=== PATIENT | male | born 1970 | race Caucasian/White ===

== ENCOUNTER 2019-08-09 16:35 | Inpatient (IN) | payer SELFPAY ==
[2019-08-09] MEDS ORDERED: Ondansetron PF 4 MG/2 ML Vial ONE (17:52)
[2019-08-09] MEDS ORDERED: Morphine 4 MG/ML VIAL ONE ×2 (17:52→18:38)
--- NOTE | 2019-08-09 18:12 | RAD ---
PORTABLE CHEST: 08/09/19 HISTORY: Epigastric pain. COMPARISON: 12/24/13 study. FINDINGS: Heart size and mediastinum are within normal limits. The lungs are clear of infiltrates. No significa nt bony findings. IMPRESSION: No active intrathoracic disease. POS: [facility]
[2019-08-09] MEDS ORDERED: Mag-Al 1200 mg/1200 mg/30 ML UDCUP ONE ×2 (18:15→18:38)
[2019-08-09] MEDS ORDERED: Lidocaine Viscous Sol 2% 15 ml UD Cup ONE ×2 (18:15→18:38)
[2019-08-09 18:18] LABS: Hemoglobin 14.2 g/dL (14.0-18.0); Mean Corpuscular HGB CONC 34.3 g/dL (32.0-36.0); Mean Corpuscular Volume 93.3 fL (78.0-98.0); Mean Platelet Volume 6.7 fL (7.4-10.4); Platelet Count 273 thou/uL (130-400); RBC Distribution Width 11.4 % (11.5-14.5); Red Blood Cell (RBC) Count 4.45 mill/uL (4.70-6.10)
[2019-08-09 18:33] LABS: ALT (SGPT) 461 U/L (8-55); AST (SGOT) 56 U/L (5-34); Albumin 4.2 g/dL (3.5-5.0); Alkaline Phosphatase 138 U/L (40-110); Anion Gap 24 mmol/L (10-20); BUN (Urea Nitrogen) 25 mg/dL (8.9-20.6); Bilirubin, Total 0.6 mg/dL (0.2-1.2); Calc. Creatinine Clearance 0 mL/min (70-130); Calcium 8.6 mg/dL (7.8-10.44); Carbon Dioxide 13 mmol/L (22-29); Chloride 100 mmol/L (98-107); Estimated GFR-MDRD 58; Globulin 2.1 g/dL (2.4-3.5); Glucose 222 mg/dL (70-105); Lipase 10 U/L (8-78); Protein, Total 6.3 g/dL (6.0-8.3); Sodium 132 mmol/L (136-145)
[2019-08-09 18:36] LABS: Band 8 % (5-11); Lymphocytes 11 % (21-51); MDiff Complete? YES; Monocytes 5 % (0-10); Neutrophil 74 % (42-75); Platelet Morphology Comment Appears Adequate; RBC Morphology Normal; Reactive Lymphocytes 2 % (0-10)
[2019-08-09 19:28] LABS: Acetaminophen Less than 6.0 mcg/mL (10.0-30.0); Alcohol Less than 10 mg/dL (Less than 10); Salicylate Less than 8.0 mg/dL (15.0-30.0)
[2019-08-09 19:31] LABS: Bilirubin Negative (Negative); Blood, Urine Negative (Negative); Clarity Clear (Clear); Glucose, Urine (Dipstick) Greater than 1000 mg/dL (Negative); Leukocyte Negative Leu/uL (Negative); Nitrite Negative (Negative); Protein, Urine (Dipstick) Negative (Neg-Trace); Urobilinogen Normal mg/dL (Less than 2)
--- NOTE | 2019-08-09 21:25 | CT ---
CT Abdomen Pelvis W Con HISTORY: Abdominal pain and vomiting. COMPARISON: None. FINDINGS: The lung bases are clear of any infiltrative process. Lungs appear somewhat hyperexpanded. There appears be some distal esophageal wall thickening which would suggest reflux. The liver spleen pancreas and gallbladder regions appear unremarkable. Right and left adrenal glands are normal. Right and left kidneys are normal in size. There is a fat d ensity exophytic mass involving the left kidney, it measures approximately 5.7 cm and is most suggestive of a myelolipoma. No obstruction of either kidney. No significant periaortic or mesenteric adenopathy. CT of pelvis performed with contrast enhancement suggestion of some slight bladder wall thickening th is could be on the basis of a bladder outlet obstruction related to a slightly enlarged prostate. The appendix is normal. No free fluid. No adenopathy or mass. IMPRESSION: 1. Myelolipoma the left kidney. 2. No acute findings of the abdomen or pelvis.
[2019-08-09] MEDS ORDERED: Dextrose 50% Abboject 50 ML SYRINGE ONE (21:36)
[2019-08-09 22:03] LABS: Lactic Acid 1.3 mmol/L (0.5-2.2)
[2019-08-09] MEDS ORDERED: Insulin Regular 100 units/100 ml in NS IVPB SCH (23:00)
[2019-08-10] MEDS ORDERED: HUMULIN R 100 UNITS in Sodium Chloride 0.9% 100 ML IVPB SCH (00:46)
[2019-08-10] MEDS ORDERED: Ondansetron PF 4 MG/2 ML Vial IVP PRN (00:46)
[2019-08-10] MEDS ORDERED: Acetaminophen 500 MG TAB PO PRN (00:46)
[2019-08-10] MEDS ORDERED: Ondansetron ODT 4 MG TAB PO PRN (00:46)
[2019-08-10] MEDS ORDERED: CCU Electrolyte Replacement 1 EACH IVPB ONE (00:46)
[2019-08-10] MEDS ORDERED: Dextrose 5 %-0.45 % NaCl 1,000 ML IV PRN (00:46)
[2019-08-10] MEDS ORDERED: D5 1/2 NS w/20 mEq KCL 1,000 ML IV PRN (00:46)
[2019-08-10] MEDS ORDERED: hydrALAZINE 20 MG/ML VIAL SLOW IVP PRN (00:46)
[2019-08-10] MEDS ORDERED: NS 0.9% w/ 20 MEQ KCL 1,000 ML IV PRN ×2 (00:46)
[2019-08-10] MEDS ORDERED: Sodium Chloride 0.9% 1,000 ML IV PRN ×4 (00:46)
[2019-08-10] MEDS ORDERED: Potassium Chloride 40 MEQ in Sodium Chloride 0.9% 250 ML 250 ML IVPB PRN (00:53)
[2019-08-10] MEDS ORDERED: Potassium Phosphate 15 MMOL in Sodium Chloride 0.9% 250 ML 250 ML IV PRN (00:53)
[2019-08-10] MEDS ORDERED: Potassium Phosphate 12 MMOL in Sodium Chloride 0.9% 250 ML 250 ML IV PRN (00:53)
[2019-08-10] MEDS ORDERED: Potassium Chloride 40 MEQ in Premix Bag 1 BAG IVPB PRN (00:53)
[2019-08-10] MEDS ORDERED: Magnesium 2 GM/50 ML 2 GM in Premix Bag 1 BAG IVPB PRN (00:53)
[2019-08-10] MEDS ORDERED: PHOS-NAK 1 PKT PACK PO PRN ×2 (00:53)
[2019-08-10] MEDS ORDERED: Potassium Chloride 20 MEQ TAB PO PRN (00:53)
[2019-08-10] MEDS ORDERED: Magnesium Oxide 400 MG TAB PO PRN ×2 (00:53)
[2019-08-10] MEDS ORDERED: Potassium Phosphate 9 MMOL in Sodium Chloride 0.9% 100 ML IVPB PRN (00:53)
[2019-08-10] MEDS ORDERED: CCU ELECTROLYTE REPLACEMENT PROTOCOL FS PRN (00:53)
[2019-08-10 01:18] VITALS: BMI 21.8
--- NOTE | 2019-08-10 01:41 | HP ---
PRIMARY CARE PROVIDER: Ashvin Duron. CHIEF COMPLAINT: Nausea, vomiting, and abdominal pain. HISTORY OF PRESENT ILLNESS: This is a 49-year-old male, who presented to [facility] Emergency Department complaining of approximate week-long history of persistent nausea, vomiting, and abdominal pain. The patient admits to poor oral intake over the last 4 to 5 days, barely able to hold down club soda or water. The patient states he has constipation without diarrhea and denied any blood in his emesis or stool. The patient does admit to daily alcohol use, as well as history of diabetes mellitus. The patient states he takes Novolin insulin 40 units b.i.d. and adjusts his insulin dosing on his own. The patient states he is not followed by any specific clinic or PCP for assistance. The patient denied any recent travel history, family members with similar symptoms, documented fever or travel. The patient admits to some abdominal cramping in the mid epigastric region, especially when taking liquids. The patient states he has had some projectile vomiting after taking water. In the emergency room, the patient underwent general evaluation with metabolic screening concerning for diabetic ketoacidosis with elevated beta hydroxybutyrate level and ketones in the urinalysis. The patient was placed on insulin infusion and given aggressive IV fluids per DKA protocol. The patient underwent CT imaging of the abdomen and pelvis showing no acute process. PAST MEDICAL HISTORY: 1. Diabetes mellitus type 2, insulin requiring. 2. Left lower extremity deep venous thrombosis without current treatment. PAST SURGICAL HISTORY: 1. Status post left arm repair. 2. Status post left hip repair. 3. Status post tonsillectomy. CURRENT MEDICATIONS: Novolin 70/30 of 40 units subcutaneously b.i.d. ALLERGIES: CODEINE AND SULFATE. FAMILY HISTORY: Positive for hypertension. SOCIAL HISTORY: The patient resides in the [facility]. Smokes up to a pack of cigarettes daily for almost 20 years. Reports alcohol use 2-3 drinks daily. No illicit drug use. REVIEW OF SYSTEMS: CONSTITUTIONAL: Negative for weight loss or gain, ability to conduct usual activities. SKIN: Negative for rash, itching. EYES: Negative for double vision, pain. ENT/MOUTH: Negative for nose bleeding, neck stiffness, pain, tenderness. CARDIOVASCULAR: Negative for palpitations, dyspnea on exertion, orthopnea. RESPIRATORY: Negative for shortness of breath, wheezing, cough, hemoptysis, fever or night sweats. GASTROINTESTINAL: Negative for poor appetite, abdominal pain, heartburn, nausea, vomiting, constipation, or diarrhea. GENITOURINARY: Negative for urgency, frequency, dysuria, nocturia. MUSCULOSKELETAL: Negative for pain, swelling. NEUROLOGIC/PSYCHIATRIC: Negative for anxiety, depression. ALLERGY/IMMUNOLOGIC: Negative for skin rash, bleeding tendency. Otherwise negative except as stated per HPI. PHYSICAL EXAMINATION: VITAL SIGNS: On admission, blood pressure 130/76, pulse 107, respiratory rate 21, temperature 98.7 degrees Fahrenheit, O2 saturation 100% on room air. GENERAL APPEARANCE: This is a 49-year-old male, alert and oriented x3, pleasant, in no acute distress. HEENT: Pupils are equal, round, reactive to light and accommodation. Extraocular muscles are intact. No scleral icterus with mild conjunctival injection. Nares patent. OP is clear with dry oral mucosa. NECK: Supple. No cervical adenopathy. No thyromegaly. No carotid bruits. No JVD appreciated. Cervical spine with full active and passive range of motion. No meningeal signs noted. CHEST: Lungs are clear to auscultation bilaterally. CARDIOVASCULAR: S1, S2 without noted murmur, rub, or gallop. ABDOMEN: Flat, soft with mild tenderness to palpation in the mid epigastric region. No palpable mass. No rebound or guarding appreciated. EXTREMITIES: Warm and dry with poor skin turgor. Pulses are palpable distally at the dorsalis pedis, posterior tibial, and popliteal arteries bilaterally. Capillary refill less than 2 seconds. NEUROLOGIC: Cranial nerves 2 through 12 are grossly intact. No focal or lateralizing signs appreciated. PERTINENT LABORATORY AND X-RAY FINDINGS: Sodium 132, potassium 5.0, chloride 100, CO2 of 13, anion gap 24, BUN 25, creatinine 1.33, estimated GFR 58, glucose 222. Lactic acid level ranged between 1.3 to 3.9, calcium 8.6, AST 56, ALT of 461, alkaline phosphatase 138. Troponin I negative x1. Lipase 10. CBC showed a white blood cell count of 21, hemoglobin 14, hematocrit 42, platelet count 273 with normal differential. Urinalysis showed greater than 1000 glucose with ketones. Beta-hydroxybutyrate level 2.46. Plasma alcohol level less than 10. Portable chest x-ray dated 08/09/2019, showed no acute cardiopulmonary process. CT of the abdomen and pelvis dated 08/09/2019, showed mild lipoma of the left kidney. No acute process identified. EKG dated 08/09/2019, by my interpretation shows sinus tachycardia with heart rates in the low 100s. Normal R-wave progression noted in the precordial leads. Normal axis. Occasional PVC noted. ASSESSMENT AND PLAN: 1. Diabetic ketoacidosis. The patient will be admitted to the intermediate care unit. We will continue DKA protocol. Continue aggressive IV fluid hydration. Check A1c level in the a.m. No current evidence to suggest acute focal infectious process. Repeat beta hydroxybutyrate level in the a.m. 2. Acute kidney injury. We will continue aggressive IV fluid hydration. Avoid nephrotoxic agents and limit contrast exposure. Serial creatinine monitoring. 3. Lactic acidosis secondary to diabetic ketoacidosis. We will continue IV fluids and monitor clinical response. 4. Transaminitis. Suspect multifactorial including alcohol use. We will repeat LFTs in the a.m. 5. Tobacco abuse. Smoking cessation resources prior to discharge. 6. Prophylaxis. SCDs while in bed. Pepcid 20 mg IV b.i.d. 7. Code status is full. Surrogate medical decision maker not identified. Job ID: [id number]
[2019-08-10 01:43] LABS: Anion Gap 13 mmol/L (10-20); BUN (Urea Nitrogen) 19 mg/dL (8.9-20.6); Calc. Creatinine Clearance 86 mL/min (70-130); Calcium 7.8 mg/dL (7.8-10.44); Carbon Dioxide 19 mmol/L (22-29); Chloride 109 mmol/L (98-107); Estimated GFR-MDRD 74; Glucose 216 mg/dL (70-105); Magnesium 2.1 mg/dL (1.6-2.6); Potassium 3.9 mmol/L (3.5-5.1); Sodium 137 mmol/L (136-145)
[2019-08-10 04:40] LABS: Hemoglobin A1c 12.1 % (4.0-6.0)
[2019-08-10 04:45] LABS: Band 7 % (5-11); Hemoglobin 11.9 g/dL (14.0-18.0); Lymphocytes 10 % (21-51); MDiff Complete? YES; Mean Corpuscular HGB CONC 33.9 g/dL (32.0-36.0); Mean Corpuscular Hemoglobin 31.8 pg (27.0-31.0); Mean Corpuscular Volume 93.8 fL (78.0-98.0); Mean Platelet Volume 6.9 fL (7.4-10.4); Monocytes 3 % (0-10); Neutrophil 78 % (42-75); Platelet Count 202 thou/uL (130-400); Platelet Morphology Comment Appears Adequate; RBC Distribution Width 11.4 % (11.5-14.5); RBC Morphology Normal; Reactive Lymphocytes 2 % (0-10); Red Blood Cell (RBC) Count 3.75 mill/uL (4.70-6.10); White Blood Cell (WBC) Count 10.9 thou/uL (4.8-10.8)
[2019-08-10 04:56] LABS: ALT (SGPT) 308 U/L (8-55); AST (SGOT) 39 U/L (5-34); Albumin 3.2 g/dL (3.5-5.0); Alkaline Phosphatase 99 U/L (40-110); Anion Gap 9 mmol/L (10-20); BUN (Urea Nitrogen) 15 mg/dL (8.9-20.6); Bilirubin, Total 0.8 mg/dL (0.2-1.2); Calc. Creatinine Clearance 98 mL/min (70-130); Calcium 7.8 mg/dL (7.8-10.44); Carbon Dioxide 22 mmol/L (22-29); Chloride 109 mmol/L (98-107); Estimated GFR-MDRD 87; Globulin 1.8 g/dL (2.4-3.5); Glucose 134 mg/dL (70-105); Potassium 3.4 mmol/L (3.5-5.1); Sodium 137 mmol/L (136-145)
[2019-08-10 06:11] LABS: Anion Gap 12 mmol/L (10-20); BUN (Urea Nitrogen) 16 mg/dL (8.9-20.6); Calc. Creatinine Clearance 106 mL/min (70-130); Calcium 7.6 mg/dL (7.8-10.44); Carbon Dioxide 17 mmol/L (22-29); Chloride 111 mmol/L (98-107); Estimated GFR-MDRD Greater than 90; Glucose 119 mg/dL (70-105); Potassium 3.6 mmol/L (3.5-5.1); Sodium 136 mmol/L (136-145)
[2019-08-10] MEDS: Famotidine/PF 20 mg/2ml Vial SLOW IVP SCH ×2 (09:10→20:13)
[2019-08-10 09:26] LABS: Anion Gap 9 mmol/L (10-20); BUN (Urea Nitrogen) 14 mg/dL (8.9-20.6); Calc. Creatinine Clearance 106 mL/min (70-130); Calcium 7.6 mg/dL (7.8-10.44); Carbon Dioxide 22 mmol/L (22-29); Chloride 109 mmol/L (98-107); Estimated GFR-MDRD Greater than 90; Glucose 126 mg/dL (70-105); Potassium 3.6 mmol/L (3.5-5.1); Sodium 136 mmol/L (136-145)
[2019-08-10] MEDS: NPH, Human Insulin Isophane 300 UNIT/3 ML VIAL SC SCH ×2 (13:02→20:13)
[2019-08-10] MEDS ORDERED: Dextrose 50% Abboject 50 ML SYRINGE IVP PRN (16:57)
[2019-08-10] MEDS ORDERED: Dextrose 5% in Water 1,000 ML IV PRN (16:57)
[2019-08-10] MEDS ORDERED: HumaLOG 300 UNITS/3 ML VIAL SC PRN (16:57)
[2019-08-11 06:01] LABS: Anion Gap 7 mmol/L (10-20); BUN (Urea Nitrogen) 8 mg/dL (8.9-20.6); Calc. Creatinine Clearance 139 mL/min (70-130); Calcium 7.9 mg/dL (7.8-10.44); Carbon Dioxide 29 mmol/L (22-29); Chloride 104 mmol/L (98-107); Estimated GFR-MDRD Greater than 90; Glucose 93 mg/dL (70-105); Sodium 137 mmol/L (136-145)
[2019-08-11] MEDS: NPH, Human Insulin Isophane 300 UNIT/3 ML VIAL SC SCH (10:01)
[2019-08-11] MEDS: Potassium Chloride 20 MEQ TAB PO SCH ×2 (10:07→14:50)
[2019-08-11] MEDS: Famotidine/PF 20 mg/2ml Vial SLOW IVP SCH (10:07)
[2019-08-11 10:44] VITALS: TEMP 98.4
[2019-08-11] MEDS ORDERED: HumuLIN 70/30 (300 UNITS/3 ML VIAL) SC SCH ×3 (11:15→21:00)
--- NOTE | 2019-08-12 10:03 | DIS ---
DATE OF ADMISSION: 08/10/2019 DATE OF DISCHARGE: 08/11/2019 PRIMARY CARE PROVIDER: Unknown. DISCHARGE DIAGNOSES: 1. Diabetic ketoacidosis. 2. Transaminitis. 3. Tobacco abuse. 4. Hypokalemia. CONDITION OF PATIENT ON THE DAY OF DISCHARGE: Stable. I assessed Mr. Perez on the day of discharge. He denies any chest pain or shortness of breath. Vital signs are stable. S1 and S2 are heard, regular. Lungs are clear to auscultation bilaterally. DISCHARGE MEDICATIONS: Humulin 70/30 insulin 40 units 2 times a day. HOSPITAL COURSE: Mr. Perez is a pleasant 49-year-old gentleman, who was admitted to [facility] on August 10, 2019 for diabetic ketoacidosis. Please refer to Dr. Schneider's history and physical note dated August 10, 2019 for further details. He was treated with intravenous fluids and intravenous insulin per DKA protocol. He improved clinically. He has been restarted on his home insulin dose. He has chronic transaminitis. He has been advised to stop alcohol use and to follow up with primary care provider for management of transaminitis. He has also been advised to stop tobacco use. On the day of discharge, he has sodium of 137, potassium 3.0, which is being replaced, carbon dioxide 29, anion gap 7. Many thanks for allowing me to participate in your patient's care. Please feel free to contact me with any questions or concerns. He has been advised to check his blood sugars 3 times a day and show the readings to primary care provider. DISCHARGE DESTINATION: Home. TIME SPENT: Total amount of time spent coordinating this discharge: 32 minutes. Job ID: [id number]
== END 2019-08-11 16:42 | disposition home or self-care (01) | DRG 638 ==
LOC: ERS 16:35 → IMCU/EMU 08-10 00:30
PROVIDERS: ADMIT Family Medicine; ATTEND Family Medicine
DX: E10.10 Type 1 diabetes mellitus with ketoacidosis without coma (principal); N17.9 Acute kidney failure, unspecified; R74.0 Nonspecific elevation of levels of transaminase and lactic acid dehydrogenase [LDH]; F17.200 Nicotine dependence, unspecified, uncomplicated; E87.6 Hypokalemia; K59.00 Constipation, unspecified; Z86.718 Personal history of other venous thrombosis and embolism; Z79.01 Long term (current) use of anticoagulants; Z88.2 Allergy status to sulfonamides; Z88.8 Allergy status to other drugs, medicaments and biological substances
CPT/HCPCS: 36415; 36416; 71045; 74177; 80048; 80053; 80307; 81003; 82010; 83036; 83605; 83690; 83735; 84100; 84484; 85007; 85025; 85027; 87040; 87086; 87149; 93005; 96361; 96365; 96366; 96368; 96375; C1713; C1882; J1815; J2270; J2405; J3490; S0028

== ENCOUNTER 2019-10-06 16:46 | Inpatient (IN) | payer SELFPAY ==
--- NOTE | 2019-10-06 17:13 | RAD ---
Portable frontal chest radiograph: 10/06/2019 COMPARISON: 08/09/2019 HISTORY: Dizziness, cough, weakness FINDINGS: Hazy new airspace disease noted within the right upper lobe. No pneumothorax. Heart and med iastinal contours are stable. IMPRESSION: Hazy new airspace disease within the right upper lobe. Findings are consistent with pneum onia. Follow-up imaging of the chest following treatment advised to document resolution.
[2019-10-06 17:20] LABS: Bicarbonate (HCO3v) 20.3 mmol/L (22.0-28.0); CO2 Tension (PvCO2) 30.7 mmHg (40.0-50.0); Calcium, Ionized 1.05 mmol/L (See Comments:); Chloride 103 mmol/L (98-107); Hemoglobin - Calc 13.8 g/dL (14.0-18.0); Potassium 4.6 mmol/L (3.5-5.1); Sodium 131 mmol/L (138-145); T. Carbon Dioxide 21.3 mmol/L (22.0-28.0); vO2 Saturation-calc 95.8 % (60.0-85.0)
[2019-10-06 17:23] LABS: Hemoglobin 13.1 g/dL (14.0-18.0); Mean Corpuscular HGB CONC 35.1 g/dL (32.0-36.0); Mean Corpuscular Hemoglobin 32.3 pg (27.0-31.0); Mean Platelet Volume 7.6 fL (7.4-10.4); Platelet Count 209 thou/uL (130-400); RBC Distribution Width 11.4 % (11.5-14.5); Red Blood Cell (RBC) Count 4.05 mill/uL (4.70-6.10); White Blood Cell (WBC) Count 15.6 thou/uL (4.8-10.8)
[2019-10-06] MEDS ORDERED: Sodium Chloride 0.9% 100 ML ONE (17:24)
[2019-10-06] MEDS ORDERED: cefTRIAXone\\ROCEPHIN 2 GM VIAL ONE (17:24)
[2019-10-06] MEDS ORDERED: Azithromycin 500 MG VIAL ONE (17:26)
[2019-10-06 17:41] LABS: Band 42 % (5-11); Lymphocytes 3 % (21-51); MDiff Complete? YES; Metamyelocyte 2 % (0-0); Monocytes 1 % (0-10); Neutrophil 52 % (42-75); Platelet Morphology Comment Appears Adequate; RBC Morphology Normal; Vacuoles SLIGHT
[2019-10-06 17:42] LABS: Bilirubin Negative (Negative); Blood, Urine Negative (Negative); Clarity Clear (Clear); Glucose, Urine (Dipstick) Greater than 1000 mg/dL (Negative); Leukocyte Negative Leu/uL (Negative); Nitrite Negative (Negative); Protein, Urine (Dipstick) Negative (Neg-Trace); Urobilinogen Normal mg/dL (Less than 2)
[2019-10-06 17:45] LABS: ALT (SGPT) 12 U/L (8-55); AST (SGOT) 11 U/L (5-34); Albumin 3.5 g/dL (3.5-5.0); Alkaline Phosphatase 71 U/L (40-110); Anion Gap 13 mmol/L (10-20); BUN (Urea Nitrogen) 14 mg/dL (8.9-20.6); Bilirubin, Total 0.9 mg/dL (0.2-1.2); Calc. Creatinine Clearance 0 mL/min (70-130); Calcium 8.4 mg/dL (7.8-10.44); Carbon Dioxide 20 mmol/L (22-29); Chloride 103 mmol/L (98-107); Estimated GFR-MDRD 87; Globulin 2.1 g/dL (2.4-3.5); Glucose 424 mg/dL (70-105); Potassium 4.7 mmol/L (3.5-5.1); Protein, Total 5.6 g/dL (6.0-8.3); Sodium 131 mmol/L (136-145)
[2019-10-06] MEDS ORDERED: Acetaminophen 325 MG TAB PO PRN (19:38)
[2019-10-06] MEDS ORDERED: Dextrose 50% Abboject 50 ML SYRINGE SLOW IVP PRN (19:38)
[2019-10-06] MEDS ORDERED: Dextrose 5% in Water 1,000 ML IV PRN (19:38)
[2019-10-06] MEDS ORDERED: Ondansetron PF 4 MG/2 ML Vial IVP PRN (19:38)
[2019-10-06] MEDS ORDERED: Diabetic Tussin 200 MG/10 ML UDCUP PO PRN (19:39)
--- NOTE | 2019-10-06 20:06 | PDOC.HHP ---
Hospitalist HPI - History of Present Illness Cough and fever History of Present Illness: Mr. Perez is a 49 y/o gentleman with PMH of T1DM who presents to the ED with cough and fever which started yesterday. He states that he was working out in the yard and started to feel bad two days ago. Today he felt feverish, but did not record a temperature at home. He reports cough but finds it difficult to produce plegm. He states he works around dirt and outside a lot. He had pneumonia one time before when he was child. Otherwise denies recent sick contacts or recent travel. Denies chest pain, shortness of breath, abdominal pain, diarrhea, dysuria, or other associated symptoms. Hospitalist ROS - Review of Systems Constitutional: denies: fever, chills, sweats, weakness, malaise, other Eyes: denies: pain, vision change, conjunctivae inflammation, eyelid inflammation, redness, other ENT: denies: ear pain, ear discharge, nose pain, nose discharge, nose congestion , mouth pain, mouth swelling, throat pain, throat swelling, other Respiratory: reports: cough, shortness of breath, sputum. denies: dry, hemoptysis, SOB with excertion, pleuritic pain, wheezing, other Cardiovascular: denies: chest pain, palpitations, orthopnea, paroxysmal noc. dyspnea, edema, light headedness, other Gastrointestinal: denies: nausea, vomiting, abdominal pain, diarrhea, constipation, melena, hematochezia, other Genitourinary: denies: dysuria, frequency, incontinence, hematuria, retention, other Musculoskeletal: denies: neck pain, shoulder pain, arm pain, back pain, hand pain, leg pain, foot pain, other Skin: denies: rash, lesions, kenny, bruising, other Neurological: denies: weakness, numbness, incoordination, change in speech, confusion, seizures, other - Medication Medications: Medication Instructions Recorded Confirmed Type Insulin NPH Hum/Reg Insulin HM 40 unit SC BID 08/10/19 08/11/19 History [HumuLIN 70/30 Kwikpen] Hospitalist History - Past Medical History Source: patient Cardiac: reports: no pertinent history Pulmonary: reports: no pertinent history DORMITORY MAID: reports: no pertinent history Gastrointestinal: reports: no pertinent history Heme/Onc: reports: no pertinent history Hepatobiliary: reports: no pertinent history Psych: reports: no pertinent history Musculoskeletal: reports: no pertinent history Rheumatologic: reports: no pertinent history Infectious Disease: reports: no pertinent history ENT: reports: no pertinent history Renal/: reports: no pertinent history Endocrine: reports: Diabetes Dermatology: reports: no pertinent history - Past Surgical History Past Surgical History: reports: Tonsillectomy, Other (left arm and let hip surgery) - Family History Family History: reports: diabetes mellitus - Social History Smoking Status: Current every day smoker Alcohol: reports: None Drugs: reports: none Living Situation: With Family Occupation: [employer] Activity level: independent ambulation - Exam General Appearance: NAD, awake alert Eye: PERRL, anicteric sclera ENT: normocephalic atraumatic, no oropharyngeal lesions, moist mucosa Neck: supple, symmetric, no JVD, no thyromegaly, no lymphadenopathy, no carotid bruit Heart: RRR, no murmur, no gallops, no rubs, normal peripheral pulses Respiratory: CTAB, no wheezes, no rales, no ronchi, normal chest expansion, no tachypnea, normal percussion Gastrointestinal: soft, non-tender, non-distended, normal bowel sounds, no palpable masses, no hepatomegaly, no splenomegaly, no bruit Extremities: no cyanosis, no clubbing, no edema Skin: normal turgor, no lesions, no rashes Neurological: cranial nerve grossly intact, normal sensation to touch, no weakness, no focal deficits, no new deficit Musculoskeletal: normal tone, normal strength, no muscle wasting Psychiatric: normal affect, normal behavior, A&O x 3 Hospitalist Results - Labs Result Diagrams: 10/06/19 17:09 10/06/19 17:09 Lab results: WBC 15.6 thou/uL (4.8-10.8) H 10/06/19 17:09 Hgb 13.1 g/dL (14.0-18.0) L 10/06/19 17:09 Hct 37.2 % (42.0-52.0) L 10/06/19 17:09 MCV 92.0 fL (78.0-98.0) 10/06/19 17:09 Plt Count 209 thou/uL (130-400) 10/06/19 17:09 Band Neuts % (Manual) 42 % (5-11) H 10/06/19 17:09 VBG pCO2 30.7 mmHg (40.0-50.0) L 10/06/19 17:19 VBG pO2 77.1 mmHg (35.0-45.0) H 10/06/19 17:19 Sodium 131 mmol/L (136-145) L 10/06/19 17:09 Potassium 4.7 mmol/L (3.5-5.1) 10/06/19 17:09 Chloride 103 mmol/L (98-107) 10/06/19 17:09 Carbon Dioxide 20 mmol/L (22-29) L 10/06/19 17:09 BUN 14 mg/dL (8.9-20.6) 10/06/19 17:09 Creatinine 0.93 mg/dL (0.7-1.3) 10/06/19 17:09 Glucose 424 mg/dL (70-105) H 10/06/19 17:09 Lactic Acid 1.2 mmol/L (0.5-2.2) 10/06/19 18:07 Calcium 8.4 mg/dL (7.8-10.44) 10/06/19 17:09 Total Bilirubin 0.9 mg/dL (0.2-1.2) 10/06/19 17:09 AST 11 U/L (5-34) 10/06/19 17:09 ALT 12 U/L (8-55) 10/06/19 17:09 Alkaline Phosphatase 71 U/L (40-110) 10/06/19 17:09 Troponin I Less than 0.010 ng/mL (< 0.028) 10/06/19 17:09 B-Natriuretic Peptide 35.9 pg/mL (0-100) 10/06/19 17:09 Serum Total Protein 5.6 g/dL (6.0-8.3) L 10/06/19 17:09 Albumin 3.5 g/dL (3.5-5.0) 10/06/19 17:09 Urine Ketones 20 mg/dL (Negative) A 10/06/19 17:20 Urine Blood Negative (Negative) 10/06/19 17:20 Urine Nitrite Negative (Negative) 10/06/19 17:20 Ur Leukocyte Esterase Negative Divya/uL (Negative) 10/06/19 17:20 Additional comment: VITAL SIGNS Sun Oct 06, 2019 18:40 CATIE Garrison, Lurdes BP: 117/67, MAP: 83, Pulse: 88, Resp: 16, Temp: 98.9 (Oral), Pain: 2CALM, O2 sat : 100 on (Room Air), Time: 10/06/2019 18:40 - Radiology Interpretation Chest x-ray Status: report reviewed by me Hospitalist H&P A/P - Problem (1) Right upper lobe pneumonia Code(s): J18.9 - PNEUMONIA, UNSPECIFIED ORGANISM Status: Acute (2) Sepsis Code(s): A41.9 - SEPSIS, UNSPECIFIED ORGANISM Status: Acute (3) Type 1 diabetes Status: Chronic (4) Smoker Code(s): F17.200 - NICOTINE DEPENDENCE, UNSPECIFIED, UNCOMPLICATED Status: Chronic - Plan Plan: Admit for inpatient. Likely greater than 2 midnights in evaluation and tx of pneumonia Ceftriaxone and Azithromycin for empiric coverage, pending sputum and blood cultures 2L normal saline given in the ED Takes 40u Novolin 70/30 at home, BSG on arrival > 400, will start Glargine 30u with medium dose correction scale and 10u TID AC Lispro premeal DVT Prophylaxis: SCDs Code status: Full ACP: Surrogate decision maker is the Disposition: Admit for tx of pneumonia.
[2019-10-06] MEDS ORDERED: Insulin Glargine 30 UNITS in Pre-Filled Syringe 1 EACH SC SCH (21:00)
[2019-10-07 02:37] VITALS: BMI 24.8
[2019-10-07] MEDS: HumaLOG 300 UNITS/3 ML VIAL SC PRN ×3 (05:56→22:54)
[2019-10-07 06:29] LABS: Band 13 % (5-11); Eosinophils 1 % (0-10); Hemoglobin 11.6 g/dL (14.0-18.0); Lymphocytes 17 % (21-51); MDiff Complete? YES; Mean Corpuscular HGB CONC 33.8 g/dL (32.0-36.0); Mean Corpuscular Hemoglobin 31.7 pg (27.0-31.0); Mean Corpuscular Volume 93.8 fL (78.0-98.0); Mean Platelet Volume 7.7 fL (7.4-10.4); Monocytes 8 % (0-10); Neutrophil 61 % (42-75); Platelet Count 203 thou/uL (130-400); Platelet Morphology Comment Appears Adequate; RBC Distribution Width 11.4 % (11.5-14.5); Red Blood Cell (RBC) Count 3.67 mill/uL (4.70-6.10); White Blood Cell (WBC) Count 16.2 thou/uL (4.8-10.8)
[2019-10-07 06:30] LABS: Anion Gap 13 mmol/L (10-20); BUN (Urea Nitrogen) 14 mg/dL (8.9-20.6); Calc. Creatinine Clearance 123 mL/min (70-130); Calcium 8.2 mg/dL (7.8-10.44); Carbon Dioxide 21 mmol/L (22-29); Chloride 104 mmol/L (98-107); Estimated GFR-MDRD Greater than 90; Glucose 307 mg/dL (70-105); Potassium 4.3 mmol/L (3.5-5.1); Sodium 134 mmol/L (136-145)
[2019-10-07] MEDS ORDERED: FLU VACC QS2019-20(6MOS UP)/PF 60 MCG/0.5 ML SYRINGE IM ONE (09:00)
[2019-10-07] MEDS: HumaLOG 300 UNITS/3 ML VIAL SC SCH ×3 (11:12→17:38)
--- NOTE | 2019-10-07 14:29 | PDOC.HOSPP ---
- Subjective Subjective: Continues with cough. States he feels a bit better. Denies fever, chills, nausea , vomiting, or other sxs. - Objective Vital Signs & Weight: Vital Signs (12 hours) Temp Pulse Resp BP Pulse Ox 10/07/19 11:47 98.5 F 89 20 109/63 97 10/07/19 08:27 98.5 F 97 20 100/58 L 95 10/07/19 06:15 98.4 F 107 H 25 H 111/58 L 93 L 10/07/19 02:30 92 L Weight Weight 178 lb 6.279 oz I&O: 10/06/19 10/07/19 10/08/19 06:59 06:59 06:59 Intake Total 750 Output Total 600 Balance 150 Result Diagrams: 10/07/19 05:53 10/07/19 05:53 Additional Labs: Accuchecks 10/07/19 10/07/19 10/07/19 12:19 11:11 05:31 POC Glucose 314 H 432 H 280 H 10/06/19 19:39 POC Glucose 341 H Hospitalist ROS - Review of Systems Constitutional: denies: fever, chills, sweats, weakness, malaise, other Respiratory: reports: cough. denies: dry, shortness of breath, hemoptysis, SOB with excertion, pleuritic pain, sputum, wheezing, other Cardiovascular: denies: chest pain, palpitations, orthopnea, paroxysmal noc. dyspnea, edema, light headedness, other Gastrointestinal: denies: nausea, vomiting, abdominal pain, diarrhea, constipation, melena, hematochezia, other - Medication Medications: Active Medications Generic Name Dose Route Start Last Admin Trade Name Freq PRN Reason Stop Dose Admin Acetaminophen 650 mg 10/06/19 19:38 10/07/19 06:03 Tylenol PO 650 mg Q4H PRN Administration Headache/Fever/Mild Pain (1-3) Insulin Glargine 30 units/ 0.3 mls @ 0 mls/hr 10/06/19 21:00 10/06/19 21:30 Miscellaneous Medication SC 0.3 mls HS CRISTA Administration Insulin Human Lispro 10 units 10/07/19 08:00 10/07/19 13:36 Humalog SC Not Given 0800 CRISTA Insulin Human Lispro 10 units 10/07/19 12:00 10/07/19 11:12 Humalog SC 10 unit 1200 CRISTA Administration Insulin Human Lispro 0 units 10/06/19 19:38 10/07/19 05:56 Humalog SC 6 unit .MODERATE SLIDING SC PRN Administration Moderate Correctional Scale Sodium Chloride 10 ml 10/06/19 21:00 10/07/19 13:37 Flush - Normal Saline IVF Not Given Q12HR CRISTA - Exam General Appearance: NAD, awake alert Eye: PERRL, anicteric sclera ENT: normocephalic atraumatic, no oropharyngeal lesions, moist mucosa Neck: supple, symmetric, no JVD, no thyromegaly, no lymphadenopathy, no carotid bruit Heart: RRR, no murmur, no gallops, no rubs, normal peripheral pulses Respiratory: CTAB, no wheezes, no rales, no ronchi, normal chest expansion, no tachypnea, normal percussion Gastrointestinal: soft, non-tender, non-distended, normal bowel sounds, no palpable masses, no hepatomegaly, no splenomegaly, no bruit Extremities: no cyanosis, no clubbing, no edema Skin: normal turgor, no lesions, no rashes Neurological: cranial nerve grossly intact, normal sensation to touch, no weakness, no focal deficits, no new deficit Musculoskeletal: normal tone, normal strength, no muscle wasting Psychiatric: normal affect, normal behavior, A&O x 3 Hosp A/P (1) Right upper lobe pneumonia Code(s): J18.9 - PNEUMONIA, UNSPECIFIED ORGANISM Status: Acute (2) Sepsis Code(s): A41.9 - SEPSIS, UNSPECIFIED ORGANISM Status: Acute (3) Type 1 diabetes Status: Chronic (4) Smoker Code(s): F17.200 - NICOTINE DEPENDENCE, UNSPECIFIED, UNCOMPLICATED Status: Chronic - Plan Continue ceftriaxone and azithromycin bllod culture is positive for gram positive kyle, will continue to await speciation and susceptibilities Increase glargine to 40units HS and continue premearl and sliding scale Continue other supportive care for pneumonia Disposition: Continue to tx pneumonia. Pending culture results and speciation.
[2019-10-07] MEDS: cefTRIAXone\\ROCEPHIN 1 GM in Sodium Chloride 0.9% 100 ML IVPB SCH (17:39)
[2019-10-07] MEDS: Azithromycin 500 MG in Sodium Chloride 0.9% 250 ML 250 ML IVPB SCH (17:45)
[2019-10-07] MEDS: Insulin Glargine 40 UNITS in Pre-Filled Syringe 1 EACH SC SCH (22:58)
[2019-10-08 11:13] LABS: Hemoglobin 12.5 g/dL (14.0-18.0); Mean Corpuscular HGB CONC 33.1 g/dL (32.0-36.0); Mean Corpuscular Hemoglobin 31.8 pg (27.0-31.0); Mean Platelet Volume 7.6 fL (7.4-10.4); Platelet Count 235 thou/uL (130-400); RBC Distribution Width 11.4 % (11.5-14.5); Red Blood Cell (RBC) Count 3.94 mill/uL (4.70-6.10); White Blood Cell (WBC) Count 17.1 thou/uL (4.8-10.8)
[2019-10-08] MEDS: HumaLOG 300 UNITS/3 ML VIAL SC SCH ×3 (11:13→16:28)
[2019-10-08 11:33] LABS: Anion Gap 10 mmol/L (10-20); BUN (Urea Nitrogen) 11 mg/dL (8.9-20.6); Calc. Creatinine Clearance 126 mL/min (70-130); Calcium 8.7 mg/dL (7.8-10.44); Carbon Dioxide 26 mmol/L (22-29); Chloride 100 mmol/L (98-107); Estimated GFR-MDRD Greater than 90; Glucose 336 mg/dL (70-105); Sodium 132 mmol/L (136-145)
[2019-10-08 11:54] LABS: Band 35 % (5-11); Eosinophils 2 % (0-10); Lymphocytes 11 % (21-51); MDiff Complete? YES; Monocytes 4 % (0-10); Neutrophil 45 % (42-75); Platelet Morphology Comment Appears Adequate; Polychromasia SLIGHT = 2-3 cells (100X) (0-2/hpf); Reactive Lymphocytes 3 % (0-10); Vacuoles SLIGHT
--- NOTE | 2019-10-08 11:56 | PDOC.HOSPP ---
- Subjective Subjective: Continues with cough. WBC count is going up. He says he feels about the same. Denies fever, chills, nausea, vomiting, or other sxs. - Objective Vital Signs & Weight: Vital Signs (12 hours) Temp Resp BP Pulse Ox 10/08/19 04:20 98.7 F 20 108/64 95 10/08/19 00:00 16 Weight Weight 178 lb 6.279 oz I&O: 10/07/19 10/08/19 10/09/19 06:59 06:59 06:59 Intake Total 750 Output Total 600 Balance 150 Result Diagrams: 10/08/19 10:55 10/08/19 10:55 Additional Labs: Accuchecks 10/08/19 10/07/19 10/07/19 07:04 22:56 17:46 POC Glucose 167 H 197 H 327 H 10/07/19 12:19 POC Glucose 314 H Hospitalist ROS - Review of Systems Constitutional: denies: fever, chills, sweats, weakness, malaise, other Respiratory: reports: cough, shortness of breath Cardiovascular: denies: chest pain, palpitations, orthopnea, paroxysmal noc. dyspnea, edema, light headedness, other Gastrointestinal: denies: nausea, vomiting, abdominal pain, diarrhea, constipation, melena, hematochezia, other - Medication Medications: Active Medications Generic Name Dose Route Start Last Admin Trade Name Freq PRN Reason Stop Dose Admin Acetaminophen 650 mg 10/06/19 19:38 10/07/19 06:03 Tylenol PO 650 mg Q4H PRN Administration Headache/Fever/Mild Pain (1-3) Azithromycin 500 mg/ Sodium 250 mls @ 250 mls/hr 10/07/19 18:00 10/07/19 17: 45 Chloride IVPB 250 mls Q24HR CRISTA Administration Ceftriaxone Sodium 1 gm/ 100 mls @ 200 mls/hr 10/07/19 17:00 10/07/19 17:39 Sodium Chloride IVPB 100 mls Q24HR CRISTA Administration Insulin Glargine 40 units/ 0.4 mls @ 0 mls/hr 10/07/19 21:00 10/07/19 22:58 Miscellaneous Medication SC 0.4 mls HS CRISTA Administration As Directed Insulin Human Lispro 10 units 10/07/19 08:00 10/08/19 11:13 Humalog SC Not Given 0800 CRISTA Insulin Human Lispro 10 units 10/07/19 12:00 10/08/19 11:13 Humalog SC 10 unit 1200 CRISTA Administration Insulin Human Lispro 10 units 10/07/19 17:00 10/07/19 17:38 Humalog SC 10 unit 1700 CRISTA Administration Insulin Human Lispro 0 units 10/06/19 19:38 10/07/19 22:54 Humalog SC 2 unit .MODERATE SLIDING SC PRN Administration Moderate Correctional Scale Sodium Chloride 10 ml 10/06/19 21:00 10/08/19 11:15 Flush - Normal Saline IVF Not Given Q12HR CRISTA - Exam General Appearance: NAD, awake alert Eye: PERRL, anicteric sclera ENT: normocephalic atraumatic, no oropharyngeal lesions, moist mucosa Neck: supple, symmetric, no JVD, no thyromegaly, no lymphadenopathy, no carotid bruit Heart: RRR, no murmur, no gallops, no rubs, normal peripheral pulses Respiratory: CTAB, no wheezes, no rales, no ronchi, normal chest expansion, no tachypnea, normal percussion Gastrointestinal: soft, non-tender, non-distended, normal bowel sounds, no palpable masses, no hepatomegaly, no splenomegaly, no bruit Extremities: no cyanosis, no clubbing, no edema Skin: normal turgor, no lesions, no rashes Neurological: cranial nerve grossly intact, normal sensation to touch, no weakness, no focal deficits, no new deficit Musculoskeletal: normal tone, normal strength, no muscle wasting Psychiatric: normal affect, normal behavior, A&O x 3 Hosp A/P (1) Right upper lobe pneumonia Code(s): J18.9 - PNEUMONIA, UNSPECIFIED ORGANISM Status: Acute (2) Sepsis Code(s): A41.9 - SEPSIS, UNSPECIFIED ORGANISM Status: Acute (3) Type 1 diabetes Status: Chronic (4) Smoker Code(s): F17.200 - NICOTINE DEPENDENCE, UNSPECIFIED, UNCOMPLICATED Status: Chronic - Plan Continue ceftriaxone and azithromycin, his WBC count seems to uptrending bllod culture is positive for gram positive kyle, will continue to await speciation and susceptibilities Continue glargine to 40units HS and continue premearl and sliding scale Continue other supportive care for pneumonia Repeat XR tomorrow AM, obtain s. pneumonia urine atigen Disposition: Continue to tx pneumonia. If persistent WBC without improvement, will need to consider other etiologies of pneumonia (fungal etc). Pending culture results and speciation.
[2019-10-08] MEDS: HumaLOG 300 UNITS/3 ML VIAL SC PRN ×3 (13:22→21:34)
[2019-10-08] MEDS: cefTRIAXone\\ROCEPHIN 1 GM in Sodium Chloride 0.9% 100 ML IVPB SCH (17:41)
[2019-10-08] MEDS: Azithromycin 500 MG in Sodium Chloride 0.9% 250 ML 250 ML IVPB SCH (18:27)
[2019-10-08] MEDS: Insulin Glargine 40 UNITS in Pre-Filled Syringe 1 EACH SC SCH (21:33)
[2019-10-08 22:45] LABS: Strep pneumo Urine Ag NEGATIVE (NEGATIVE)
[2019-10-09 05:51] LABS: #Eosinphils 0.1 thou/uL (0.0-0.7); #Lymphocytes 1.5 thou/uL (1.20-3.40); #Monocytes 0.8 thou/uL (0.11-0.59); #Neutrophils 8.8 thou/uL (1.40-6.50); %Basophils 0.4 % (0.0-1.0); %Eosinophils 1.1 % (0.0-10.0); %Lymphocytes 13.5 % (21.0-51.0); Hemoglobin 11.3 g/dL (14.0-18.0); Mean Corpuscular HGB CONC 32.7 g/dL (32.0-36.0); Mean Corpuscular Hemoglobin 31.1 pg (27.0-31.0); Mean Corpuscular Volume 95.1 fL (78.0-98.0); Mean Platelet Volume 7.5 fL (7.4-10.4); Platelet Count 238 thou/uL (130-400); RBC Distribution Width 11.3 % (11.5-14.5); Red Blood Cell (RBC) Count 3.64 mill/uL (4.70-6.10); White Blood Cell (WBC) Count 11.3 thou/uL (4.8-10.8)
[2019-10-09 06:09] LABS: Anion Gap 9 mmol/L (10-20); BUN (Urea Nitrogen) 8 mg/dL (8.9-20.6); Calc. Creatinine Clearance 149 mL/min (70-130); Calcium 8.5 mg/dL (7.8-10.44); Carbon Dioxide 27 mmol/L (22-29); Chloride 104 mmol/L (98-107); Estimated GFR-MDRD Greater than 90; Glucose 170 mg/dL (70-105); Potassium 3.9 mmol/L (3.5-5.1); Sodium 136 mmol/L (136-145)
[2019-10-09] MEDS: HumaLOG 300 UNITS/3 ML VIAL SC PRN ×2 (06:22→12:13)
--- NOTE | 2019-10-09 07:44 | RAD ---
EXAM: Single view of the chest HISTORY: Pneumonia COMPARISON: 10/06/2019 FINDINGS: Single view of the chest shows a normal sized cardiomediastinal silhouette. There is worsen ing of airspace opacity in the right upper lobe. The bones are unremarkable. IMPRESSION: Worsening right upper lobe pneumonia.
[2019-10-09] MEDS: HumaLOG 300 UNITS/3 ML VIAL SC SCH ×2 (09:32→12:12)
[2019-10-09 11:15] VITALS: BP 105/64; TEMP 98.3
--- NOTE | 2019-10-09 17:47 | PDISCHARGE ---
Discharge - Disposition Disposition: HOME - Ambulatory Orders Prescriptions: Cefdinir 300 mg PO Q12HR 5 Days #10 capsule Azithromycin 500 mg PO DAILY 5 Days #5 tablet - Patient Instructions Pre-Printed Education: Cefdinir capsules, Incentive Spirometer, Azithromycin tablets, Community-Acquired Pneumonia, Adult, [id number] Additional Instructions: Please call and schedule follow-up appointment with PCP in 1 week. See patient discharge instruction sheet for detailed teaching. Patient verbalizes understanding of medications and is able to verbalize follow-up care. See Discharge Plan for additional discharge information. Patient secured in private vehicle prior to departure. Care Plan Goals: FOCUS: Transition from Acute Care after Discharge GOAL: Successful transition to care in the community YOUR TASKS: (1) review all information outlined in your discharge packet (2) follow any instructions outlined in your discharge packet (3) contact your primary care provider if you have questions or need additional assistance - Referrals and PCP Follow-Up Referrals and PCP Follow-Up: PROVIDER,NO PCP [Primary Care Provider] - - Activity Instructions Additional Activity Instructions:: Avoid outside environments, dusts, pollutants at least for one week. Course - Course Orders, Labs, Meds: Admitted for community acquired pneumonia. Initial WBC count elevated, clinical symptoms of cough, and CXR findings suggestive of right upper lobe process. Treated with IV antibtiocs and fluids. Patient showed clinical improvement and improvement in WBC count. Will be discharge to complete remainder of CAP guideline based therapy. Follow up with PCP in 1 week. Total time spent on discharge planning and management > 30 minutes Hosp A/P (1) Right upper lobe pneumonia Code(s): J18.9 - PNEUMONIA, UNSPECIFIED ORGANISM Status: Acute (2) Sepsis Code(s): A41.9 - SEPSIS, UNSPECIFIED ORGANISM Status: Acute (3) Type 1 diabetes Status: Chronic (4) Smoker Code(s): F17.200 - NICOTINE DEPENDENCE, UNSPECIFIED, UNCOMPLICATED Status: Chronic
== END 2019-10-09 15:29 | disposition home or self-care (01) | DRG 871 ==
LOC: ERS 16:46 → ERHOLD 19:23 → 3SE 23:12 → SURG A 10-08 17:45
PROVIDERS: ADMIT Internal Medicine; ATTEND Internal Medicine
DX: A41.9 Sepsis, unspecified organism (principal); J18.9 Pneumonia, unspecified organism; Z90.89 Acquired absence of other organs; E10.9 Type 1 diabetes mellitus without complications; F17.210 Nicotine dependence, cigarettes, uncomplicated
CPT/HCPCS: 36415; 36416; 71045; 80048; 80053; 81003; 82010; 82330; 82803; 83605; 83880; 84484; 85025; 85060; 87040; 87070; 87086; 87205; 87449; 87804; 93005; 96365; J0456; J0696; J1815; J3490; J7050